=== PATIENT | female | born 1955 | race Caucasian/White ===

== ENCOUNTER → 2019-07-27 | Outpatient (CLI) | payer MEDICARE ==
[2019-07-27 12:15] LABS: BUN/CREATININE RATIO 9; CARBON DIOXIDE 26 MMOL/L (21-32); CHLORIDE 101 MMOL/L (98-107); CREATININE SERUM 0.79 MG/DL (0.60-1.30); GFR ESTIMATED > 60; POTASSIUM 4.2 MMOL/L (3.6-5.0); SODIUM 141 MMOL/L (135-145)
[2019-07-27 12:16] LABS: ALANINE AMINOTRANSFERASE 11 U/L (0-55); ALBUMIN 4.1 GM/DL (3.2-4.5); ALKALINE PHOSPHATASE 98 U/L (40-136); BILIRUBIN,TOTAL 0.3 MG/DL (0.1-1.0); CALCIUM 9.1 MG/DL (8.5-10.1); GLUCOSE 95 MG/DL (70-105); TOTAL PROTEIN 7.3 GM/DL (6.4-8.2)
[2019-07-27 15:07] LABS: CHOLESTEROL 255 MG/DL (< 200); HDL CHOLESTEROL 50 MG/DL (40-60); TRIGLYCERIDES 100 MG/DL (<150); VLDL CHOLESTEROL 20 MG/DL (5-40)
== END ==
LOC: LAB FS 10:44
PROVIDERS: ATTEND Family Medicine
DX: Z00.00 Encounter for general adult medical examination without abnormal findings (principal); E78.5 Hyperlipidemia, unspecified
CPT/HCPCS: 36415; 80053; 80061

== ENCOUNTER 2021-07-06 19:38 | Emergency (ER) | payer MEDICARE ==
[~2021-07-06] VITALS: Ht 162.6 cm; Wt 58.1 kg
[2021-07-06 19:38] VITALS: BP 134/100
--- NOTE | 2021-07-06 21:09 | Diagnostic Imaging Report ---
EXAMINATION: Left wrist radiographs, 3 views. COMPARISON: None. HISTORY: 66-year-old female, left wrist pain. FINDINGS: There is a mildly displaced distal radial metaphyseal fracture including intra-articular fracture extension in the region of the scaphoid fossa without gross offset of the articulating surface. There is no additional identified acute fracture. There is no radiopaque foreign body. IMPRESSION: 1. Mildly displaced intra-articular fracture of the distal radius without gross offset of the articulating surface. Dictated by: Dictated on workstation # [id number]
--- NOTE | 2021-07-06 21:10 | Diagnostic Imaging Report ---
Procedure: CT pelvis without contrast. Technique: Multiple contiguous axial images were obtained through the pelvis without the use of intravenous contrast. Sagittal and coronal reformations were performed. Auto Exposure Controls were utilized during the CT exam to meet ALARA standards for radiation dose reduction. Date: July 06, 2021. Indication: 66-year-old female, pelvic pain. Injury. Comparison: None. Findings: There is no identified acute fracture at the level of the pelvis. The hips are not dislocated. There is no identified focal fluid collection or hematoma. There is no free pelvic fluid. There is a small fat-containing umbilical hernia. Impression: 1. No identified acute abnormality at the level of the pelvis. Dictated by: Dictated on workstation # [id number]
--- NOTE | 2021-07-06 21:11 | Diagnostic Imaging Report ---
Procedure: CT lumbar spine without contrast. Technique: Multiple contiguous axial images were obtained through the lumbar spine without the use of intravenous contrast. Sagittal and coronal reformations were then performed. Auto Exposure Controls were utilized during the CT exam to meet ALARA standards for radiation dose reduction. Date: July 06, 2021. Indication: 66-year-old female, low back pain. Injury. Comparison: None. Findings: The alignment of the lumbar spine is unremarkable. There is no identified acute fracture of the lumbar spine. The lumbar disc heights are well preserved. CT is limited for assessment of disc pathology as well as additional non-bony causes of pathology in the spinal canal. Impression: 1. No acute abnormality of the lumbar spine. Dictated by: Dictated on workstation # [id number]
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
[2021-07-06] MEDS ORDERED: IBUPROFEN 800 MG (MOTRIN) TAB PO STA (22:01)
[2021-07-06] MEDS ORDERED: ACETAMINOPHEN 500 MG TAB (TYLENOL) PO STA (22:01)
[2021-07-06] MEDS ORDERED: ORPHENADRINE 60 MG/2 ML (NORFLEX) AMP (ED ONLY) IM STA (22:08)
[2021-07-06] MEDS ORDERED: METH-732 PO (22:44)
== END 2021-07-06 22:50 | disposition home or self-care (01) ==
LOC: EDUNIT# 19:38 → ER FS 19:39
DX: S52.572A Other intraarticular fracture of lower end of left radius, initial encounter for closed fracture (principal); S30.0XXA Contusion of lower back and pelvis, initial encounter; F17.210 Nicotine dependence, cigarettes, uncomplicated; W03.XXXA Other fall on same level due to collision with another person, initial encounter; Y92.009 Unspecified place in unspecified non-institutional (private) residence as the place of occurrence of the external cause
CPT/HCPCS: 29125; 72131; 72192; 73110

== ENCOUNTER → 2021-07-16 | Outpatient (CLI) | payer MEDICARE ==
[~2021-07-16] MED LIST: METH-732 PO
== END ==
LOC: ORTHO 14:15
PROVIDERS: ATTEND Orthopaedic Surgery
DX: S52.502D Unspecified fracture of the lower end of left radius, subsequent encounter for closed fracture with routine healing (principal); X58.XXXD Exposure to other specified factors, subsequent encounter

== ENCOUNTER → 2021-07-29 | Outpatient (CLI) | payer MEDICARE ==
--- NOTE | 2021-07-29 13:24 | Diagnostic Imaging Report ---
INDICATION: Radius fracture, followup. TECHNIQUE: Three views of the left wrist. CORRELATION STUDY: 07/06/2021. FINDINGS: Intra-articular fracture of the distal radius is again demonstrated. Slight dorsal displacement of the larger fracture fragment as well as mild impaction. The fracture lines do demonstrate slight sclerosis but overall do remain present. Alignment is near-anatomic. Distal ulna intact as well as the carpal bones which appear to be intact. Mild soft tissue edema over the wrist. IMPRESSION: Generally stable appearance of the slightly impacted comminuted intra-articular distal left radius fracture. Very early healing changes are suggested. Dictated by: Dictated on workstation # [id number]
== END ==
LOC: RAD FS 12:04
PROVIDERS: ATTEND Orthopaedic Surgery
DX: S52.572D Other intraarticular fracture of lower end of left radius, subsequent encounter for closed fracture with routine healing (principal); X58.XXXD Exposure to other specified factors, subsequent encounter
CPT/HCPCS: 73110

== ENCOUNTER → 2021-07-30 | Outpatient (CLI) | payer MEDICARE | LOC: ORTHO 14:23 | PROVIDERS: ATTEND Orthopaedic Surgery | DX: S52.502D Unspecified fracture of the lower end of left radius, subsequent encounter for closed fracture with routine healing (principal); X58.XXXD Exposure to other specified factors, subsequent encounter ==

== ENCOUNTER → 2021-08-12 | Outpatient (CLI) | payer MEDICARE ==
--- NOTE | 2021-08-12 15:10 | Diagnostic Imaging Report ---
INDICATION: Follow-up fracture. EXAMINATION: Left wrist, 08/12/2021. COMPARISON: 07/29/2021. FINDINGS: 3 views of the wrist. Again seen is a fracture, intra-articular in nature, within the distal radius with changes of healing since the previous examination. No new fracture is identified. There are no dislocations. IMPRESSION: Continued changes of healing about the distal radial fracture. Dictated by: Dictated on workstation # [id number]
== END ==
LOC: RAD FS 13:37
PROVIDERS: ATTEND Orthopaedic Surgery
DX: Z47.89 Encounter for other orthopedic aftercare (principal); S52.502D Unspecified fracture of the lower end of left radius, subsequent encounter for closed fracture with routine healing; X58.XXXD Exposure to other specified factors, subsequent encounter
CPT/HCPCS: 73110

== ENCOUNTER → 2021-08-13 | Outpatient (CLI) | payer MEDICARE | LOC: ORTHO 14:24 | PROVIDERS: ATTEND Orthopaedic Surgery | DX: S52.502A Unspecified fracture of the lower end of left radius, initial encounter for closed fracture (principal); X58.XXXA Exposure to other specified factors, initial encounter ==

== ENCOUNTER → 2021-09-09 | Outpatient (CLI) | payer MEDICARE ==
--- NOTE | 2021-09-09 14:35 | Diagnostic Imaging Report ---
INDICATION: Follow-up wrist fracture. COMPARISON: 08/12/2021. FINDINGS: Three radiographic views of the left wrist were obtained. Previously described distal radius fracture is less conspicuous on this exam. Findings may be on the basis of progressive interval healing. Cortical deformity of the articular surface of the distal radius is again noted. No new acute fracture or dislocation is identified. Radiocarpal joint space is intact. No unexpected radiopaque foreign bodies are seen. IMPRESSION: Continued progressive interval healing of previously described distal left radius fracture. Dictated by: Dictated on workstation # [id number]
== END ==
LOC: RAD FS 13:30
PROVIDERS: ATTEND Orthopaedic Surgery
DX: Z47.89 Encounter for other orthopedic aftercare (principal); S52.502D Unspecified fracture of the lower end of left radius, subsequent encounter for closed fracture with routine healing; X58.XXXD Exposure to other specified factors, subsequent encounter
CPT/HCPCS: 73110